=== PATIENT | female | born 1950 | race Caucasian/White ===

== ENCOUNTER → 2017-07-09 | Outpatient (CLI) | payer MEDICARE ==
[~2017-07-09] MED LIST: ASPI81TA23 PO; ASPI81TA82 PO; LEVO137T2 PO; LISI20TA3 PO; METO25 PO; METO50TA PO
[2017-07-09 11:38] LABS: AUTOMATED NEUTROPHIL # 3.3 TH/MM3 (1.8-7.7); BASOPHIL # 0.1 TH/MM3 (0-0.2); BASOPHIL % 0.9 % (0.0-2.0); EOSINOPHIL # 0.2 TH/MM3 (0-0.4); HEMATOCRIT 38.5 % (35.0-46.0); HEMO FLAGS DIFF FINAL; LYMPHOCYTE # 1.5 TH/MM3 (1.0-4.8); MEAN CELL VOLUME 95.3 FL (80.0-100.0); MEAN CORPUSCULAR HEMOGLOBIN 31.9 PG (27.0-34.0); MEAN CORPUSCULAR HGB CONC 33.5 % (32.0-36.0); MONO % 11.5 % (0.0-8.0); NEUT % 58.6 % (16.0-70.0); PLATELET COUNT 253 TH/MM3 (150-450); RED BLOOD COUNT 4.04 MIL/MM3 (4.00-5.30); RED CELL DISTRIBUTION WIDTH 13.6 % (11.6-17.2); WHITE BLOOD COUNT 5.7 TH/MM3 (4.0-11.0)
[2017-07-09 11:42] LABS: APTT (PATIENT) 25.2 SEC (24.3-30.1); INTERNATIONAL NORMALIZED RATIO 1.1 RATIO; PROTHROMBIN TIME - PATIENT 10.7 SEC (9.8-11.6)
[2017-07-09 12:07] LABS: ALT (GPT) 15 U/L (10-53); ANION GAP 7 MEQ/L (5-15); AST (GOT) 15 U/L (15-37); BICARBONATE 28.2 MEQ/L (21.0-32.0); BLOOD UREA NITROGEN 23 MG/DL (7-18); CHLORIDE 107 MEQ/L (98-107); GLOMERULAR FILTRATION RATE 64 ML/MIN (>89); GLUCOSE,FASTING 106 MG/DL (74-99); POTASSIUM 3.8 MEQ/L (3.5-5.1); SODIUM (NA) 142 MEQ/L (136-145)
[2017-07-09 12:10] LABS: ALKALINE PHOSPHATASE 68 U/L (45-117); TOTAL BILIRUBIN ADULT 1.1 MG/DL (0.2-1.0)
--- NOTE | 2017-07-09 13:06 | RADRPT ---
EXAM DATE/TIME: 07/09/2017 11:22 [place] COMPARISON: No previous studies available for comparison. INDICATIONS : Pre-op Hysterectomy. Evaluate for Pneumoia, Pneumothorax, and Communicable Diseases. MEDICAL HISTORY : None. SURGICAL HISTORY : None. ENCOUNTER: Initial ACUITY: 1 day PAIN SCORE: 0/10 LOCATION: Bilateral chest FINDINGS: The cardiac silhouette is enlarged in transverse diameter. The lungs are free of acute parenchymal op acity. No effusions are identified. The aortic knob is prominent with tortuosity of the descending th oracic aorta. There is mild multilevel degenerative change throughout the spine. There is eventratio n of the right hemidiaphragm. CONCLUSION: 1. Cardiomegaly. No acute pulmonary disease. Sanford Fabian MD on July 09, 2017 at 13:03 Board Certified Radiologist. This report was verified electronically.
--- NOTE | 2017-07-10 16:30 | EKG ---
Date Performed: 07/09/2017 Time Performed: 09:56:17 PTAGE: 66 years EKG: ATRIAL FIBRILLATION Consider inferolateral and inferior ischemia. ABNORMAL ECG NO PREVIOUS TRACING DOCTOR: Jonathan Scanlon Interpretating Date/Time 07/10/2017 16:29:20
== END ==
LOC: CPRE 09:40
PROVIDERS: ATTEND Obstetrics & Gynecology Gynecologic Oncology
DX: Z01.810 Encounter for preprocedural cardiovascular examination (principal); Z01.811 Encounter for preprocedural respiratory examination; Z01.812 Encounter for preprocedural laboratory examination; C54.1 Malignant neoplasm of endometrium; R94.31 Abnormal electrocardiogram [ECG] [EKG]
CPT/HCPCS: 36415; 71020; 80053; 85025; 85610; 85730; 93005

== ENCOUNTER 2017-07-24 05:24 | Observation (INO) | payer MEDICARE ==
[~2017-07-24] VITALS: Ht 171.4 cm; Wt 117.8 kg
[~2017-07-24 05:24] MED LIST changes: -ASPI81TA82 PO; -METO25 PO
[2017-07-24] MEDS ORDERED: ceFAZolin 2 GM PREMIX 50 ML IV SCH (05:45)
[2017-07-24] MEDS ORDERED: CHLORHEXIDINE GLUCONATE 2 % 1 PACK (2 CLOTHS) TOPICAL PRN (05:45)
[2017-07-24] MEDS ORDERED: POVIDONE IODINE 5% (ANTISEPSIS KIT) 4 APPLICATIONS EACH NARE PRN (05:45)
[2017-07-24] MEDS ORDERED: INSULIN HUMAN REGULAR 1,000 UNITS/10 ML VIAL SQ PRN (05:45)
[2017-07-24] MEDS ORDERED: METOPROLOL TARTRATE 25 MG TAB PO PRN (05:45)
[2017-07-24] MEDS ORDERED: SODIUM CHLORID 0.9% 500 ML IV PRN (05:45)
[2017-07-24] MEDS ORDERED: HEPARIN SODIUM - SQ 10,000 UNITS/ML VIAL SQ PRN (05:45)
[2017-07-24] MEDS ORDERED: SODIUM CHLORIDE FLUSH PRN IV FLUSH (06:00)
[2017-07-24] MEDS: LACTATED RINGER'S 1000 ML IV PRN ×2 (06:00→11:00)
[2017-07-24] MEDS ORDERED: LIDOCAINE 2%/EPINEPHrine PF 1:200,000 20ML SDV ONE (07:24)
[2017-07-24] MEDS ORDERED: SODIUM CHLORIDE FLUSH BID IV FLUSH SCH (09:00)
[2017-07-24] MEDS ORDERED: METHYLENE BLUE 10 MG/ML VIAL IV ONE (10:00)
[2017-07-24] MEDS: D5-1/2 NS + KCL 20 MEQ INJ 1,000 ML IV SCH ×2 (11:21→20:08)
[2017-07-24] MEDS ORDERED: diphenhydrAMINE HCL 25 MG CAP PO PRN (11:30)
[2017-07-24] MEDS ORDERED: SODIUM CHLORIDE 0.9% FLUSH 10 ML FLUSH IV FLUSH PRN (11:30)
[2017-07-24] MEDS ORDERED: ONDANSETRON HCL 4 MG/2 ML VIAL IVP PRN (11:30)
[2017-07-24] MEDS ORDERED: oxyCODONE/ACETAMINOPHEN 5 MG/325 MG TAB PO PRN (11:30)
[2017-07-24] MEDS: KETOROLAC TROMETHAMINE 30 MG/ML (IVP) VIAL IVP SCH ×3 (11:30→23:43)
[2017-07-24] MEDS ORDERED: DO NOT ADM ANY ANTICOAGULANT DRUGS PRN (11:44)
[2017-07-24] MEDS ORDERED: LIDOCAINE HCL 1% PF 5 ML SYRINGE OTHER ONE (12:00)
[2017-07-24] MEDS ORDERED: VECURONIUM BROMIDE 20 MG VIAL IV ONE (12:00)
[2017-07-24] MEDS ORDERED: ceFAZolin INJ 1,000 MG VIAL IV ONE (12:00)
[2017-07-24] MEDS ORDERED: DEXAMETHASONE SOD PHOS 4 MG/ML VIAL IV ONE (12:00)
[2017-07-24] MEDS ORDERED: NORMOSOL R INJ 1,000 ML IV ONE (12:00)
[2017-07-24] MEDS ORDERED: ROCURONIUM INJ 50 MG/5 ML SYRINGE IV PUSH ONE (12:00)
[2017-07-24] MEDS ORDERED: ONDANSETRON HCL 4 MG/2 ML VIAL IV ONE (12:00)
[2017-07-24] MEDS ORDERED: ePHEDrine/NS 25 MG/5 ML SYRINGE IV ONE (12:00)
[2017-07-24] MEDS ORDERED: ceFAZolin 2 GM PREMIX 50 ML IV ONE (12:00)
[2017-07-24] MEDS ORDERED: SODIUM CHLORIDE 0.9% 20 ML VIAL IV ONE (12:00)
[2017-07-24] MEDS ORDERED: PHENYLEPH/NS 1000 MCG/10 ML SYR IV ONE (12:00)
[2017-07-24] MEDS ORDERED: PROPOFOL 200 MG/20 ML AMP IV ONE (12:00)
[2017-07-24] MEDS ORDERED: GLYCOPYRROLATE 1 MG/5 ML SYRINGE IV PUSH ONE (12:00)
[2017-07-24] MEDS ORDERED: NEOSTIGMINE 5 MG/5 ML SYRINGE IV PUSH ONE (12:00)
[2017-07-24] MEDS ORDERED: METOPROLOL TARTRATE 5 MG/5 ML VIAL IV ONE (12:00)
[2017-07-24] MEDS ORDERED: *morphine SULFATE 8 MG/ML PERIprocedure ONLY ONE (12:38)
[2017-07-24 14:00] VITALS: BP 120/64; PULSE 72; RESP 18; TEMP 98.2
--- NOTE | 2017-07-24 15:33 | PD.ONC.PN ---
Subjective Subjective Remarks post op note pt sleeping, awakens to voice no complaints except thirsty Objective Data Date Time Temp Pulse Resp B/P (MAP) Pulse Ox O2 Delivery O2 Flow Rate FiO2 07/24/17 11:41 98.1 76 20 124/57 (79) 91 Nasal Cannula 2 07/24/17 06:01 98.5 65 18 121/53 (75) 96 07/24/17 07/24/17 07/24/17 07:00 15:00 23:00 Intake Total 2000 ml Output Total 600 ml Balance 1400 ml Administered Medications Medications (Trade) Dose Ordered Sig/Jt Route PRN Reason Start Time Stop Time Status Last Admin Dose Admin Lactated Ringer's 1,000 ml @ 30 mls/hr Q24H PRN IV SEE LABEL COMMENTS 07/24/17 05:45 07/27/17 05:44 07/24/17 11:00 Povidone Iodine (Betadine 5% Antisepsis Kit) 1 applic OIL PRODUCER PRN EACH NARE SEE LABEL COMMENTS 07/24/17 05:45 07/27/17 05:44 07/24/17 06:06 Chlorhexidine Gluconate (Chlorhexidine 2% Cloth) 3 pack OIL PRODUCER PRN TOPICAL SEE LABEL COMMENTS 07/24/17 05:45 07/27/17 05:44 07/24/17 05:30 Cefazolin Sodium/ Dextrose 50 ml @ 100 mls/hr OIL PRODUCER IV 07/24/17 05:45 07/27/17 05:44 07/24/17 06:55 Potassium Chloride/Dextrose/ Sod Cl 1,000 ml @ 100 mls/hr Q10H IV 07/24/17 11:21 07/24/17 11:21 Ketorolac Tromethamine (Toradol Inj) 15 mg Q6H IVP 07/24/17 11:30 07/25/17 05:31 07/24/17 11:30 Objective Remarks GENERAL: Well-nourished, well-developed patient. SKIN: Warm and dry. HEAD: Normocephalic. EYES: No scleral icterus. No injection or drainage. CARDIOVASCULAR: Regular rate and rhythm without murmurs. RESPIRATORY: Breath sounds equal bilaterally. No accessory muscle use. GASTROINTESTINAL: Abdomen soft, non-tender, nondistended. SS are c/d/i EXTREMITIES: teds and scds MUSCULOSKELETAL: Adequate muscle tone. PSYCHIATRIC: Appropriate mood and affect; insight and judgment normal. Assessment/Plan Problem List: (1) Post-operative state ICD Codes: Z98.890 - Other specified postprocedural states Status: Acute Plan: s/p RA dung hyst with BSO for endometrial cancer post op orders in chart ADAT OOB to chair IS to bedsde Percocet and Toradol for pain gutierrez to be removed tomorrow morning anticipate discharge tomorrow Geronimo Lo [facility] Jul 24, 2017 15:33
[2017-07-24 17:00] VITALS: BP 116/70; PULSE 68; RESP 18; TEMP 98.8
[2017-07-24 20:00] VITALS: BP 132/63; PULSE 76; PULSE 82; RESP 18; TEMP 98.3; O2SAT 98
[2017-07-24] MEDS: METOPROLOL TARTRATE 50 MG TAB PO SCH (20:13)
[2017-07-24] MEDS ORDERED: SODIUM CHLORIDE 0.9% FLUSH 10 ML FLUSH IV FLUSH SCH (21:00)
[2017-07-24 23:39] VITALS: BP 128/70; PULSE 76; RESP 19; TEMP 97.9; O2SAT 95
[2017-07-24] MEDS: oxyCODONE/ACETAMINOPHEN 5 MG/325 MG TAB PO PRN (23:43)
[2017-07-25 04:33] VITALS: BP 117/58; PULSE 69; RESP 19; TEMP 98; O2SAT 95
[2017-07-25] MEDS: D5-1/2 NS + KCL 20 MEQ INJ 1,000 ML IV SCH (04:37)
[2017-07-25] MEDS: KETOROLAC TROMETHAMINE 30 MG/ML (IVP) VIAL IVP SCH (05:26)
[2017-07-25] MEDS ORDERED: OXYC1TAB63 PO (06:54)
[2017-07-25 08:00] VITALS: BP 117/71; PULSE 70; RESP 18; TEMP 98; O2SAT 96
[2017-07-25 08:18] LABS: BASOPHIL % 0.1 % (0.0-2.0); EOSINOPHIL % 0.1 % (0.0-4.0); HEMATOCRIT 34.8 % (35.0-46.0); HEMOGLOBIN 11.6 GM/DL (11.6-15.3); LYMPH % 8.9 % (9.0-44.0); LYMPHOCYTE # 1.2 TH/MM3 (1.0-4.8); MEAN CELL VOLUME 94.2 FL (80.0-100.0); MEAN CORPUSCULAR HEMOGLOBIN 31.3 PG (27.0-34.0); MEAN CORPUSCULAR HGB CONC 33.2 % (32.0-36.0); MEAN PLATELET VOLUME 7.8 FL (7.0-11.0); MONO % 7.4 % (0.0-8.0); NEUT % 83.5 % (16.0-70.0); PLATELET COUNT 259 TH/MM3 (150-450); RED CELL DISTRIBUTION WIDTH 13.7 % (11.6-17.2); WHITE BLOOD COUNT 13.1 TH/MM3 (4.0-11.0)
[2017-07-25] MEDS: METOPROLOL TARTRATE 50 MG TAB PO SCH (08:53)
[2017-07-25 08:57] LABS: BICARBONATE 26.1 MEQ/L (21.0-32.0); CALCIUM 7.6 MG/DL (8.5-10.1); CREATININE 0.85 MG/DL (0.50-1.00)
[2017-07-25] MEDS ORDERED: LEVOTHYROXINE SODIUM 112 MCG TAB PO SCH (09:00)
[2017-07-25] MEDS ORDERED: LISINOPRIL 20 MG TAB PO SCH (09:00)
[2017-07-25] MEDS ORDERED: HYDROCHLOROTHIAZIDE 25 MG TAB PO SCH (09:00)
[2017-07-25] MEDS ORDERED: LEVOTHYROXINE SODIUM 25 MCG TAB PO SCH (09:00)
[2017-07-25] MEDS ORDERED: NON-FORMULARY DRUG (Lisinopril-Hctz 1 TAB) PO SCH (09:00)
[2017-07-25] MEDS ORDERED: INFLUENZA VIRUS VACCINE (QUADRIVALENT) 0.5 ML SYR IM ONE (10:00)
[2017-07-25] MEDS ORDERED: PNEUMOCOCCAL POLYVALENT INJ 25 MCG/0.5 ML SYR IM ONE (10:00)
[2017-07-25 11:41] VITALS: BP 122/68; PULSE 72; RESP 18; TEMP 98.4; O2SAT 98
[2017-07-25] MEDS: oxyCODONE/ACETAMINOPHEN 5 MG/325 MG TAB PO PRN (12:48)
--- NOTE | 2017-07-26 07:52 | MP ---
cc: NATHAN VAZQUEZ,LISA Vera MD DATE OF SURGERY: 07/24/2017 PREOPERATIVE DIAGNOSIS: 1. Grade 1 endometrial adenocarcinoma 2. Enlarged uterus. POSTOPERATIVE DIAGNOSIS 1. Grade 1 endometrial cancer. 2. Enlarged uterus. 3. The extensive pelvic adhesions. PROCEDURE Robotic-assisted laparoscopic hysterectomy bilateral salpingo-oophorectomy, partial omentectomy, extensive lysis of adhesions. SURGEON Lisa Littlejohn MD. CREMATOR [place] perioperative assistant ANESTHESIA: General endotracheal anesthesia ESTIMATED BLOOD LOSS 200 cc IV FLUIDS 2000 cc URINE OUTPUT 400 cc HISTORY 66-year-old female who in recent weeks to months had has had more notable postmenopausal bleeding. It got heavier for which she sought evaluation. Historically she had on and off light bleeding or spotting over the last 5 years. Evaluation showed a thickened endometrial stripe. An enlarged prominent uterus. She underwent biopsy that showed a grade 1 endometrial adenocarcinoma. She has been counseled regarding options. She is in favor of surgery. She is seen again in the preop holding area where findings are again reviewed. The plan of surgical care is discussed. Questions were asked and answered. She expressed good understanding and agreed to move forward with surgery. FINDINGS Uterine cavity sounds to 12 cm. The uterus is symmetrically enlarged wide with what seems to be changes due to the leiomyomas as well as probable adenomyosis. In addition to the endometrial tumor. The tubes and ovaries grossly appeared normal. However, there were extensive in the adhesions adjacent to the tubes and ovaries. In the pelvis the posterior cul-de-sac is obliterated the colon and mesentery are scarred to the posterior wall of the uterus and cul-de-sac. The colon is adherent overlying the left pelvic sidewall structures. There is diverticulum. no evidence of active diverticulitis but the changes in the pelvis are suggestive of scar tissue that has resulted from prior diverticulitis. In the abdomen. There is no significant adhesions other than to the abdominal wall. However, the distal edge of the Infrac[place] omentum is draped over the uterine fundus and adherent to the uterus with some adjacent adhesions as well. The liver diaphragm edges were smooth. The omentum otherwise grossly appears normal. Peritoneal surfaces otherwise grossly appeared normal. There is no obviously enlarged pelvic or paraaortic lymph nodes. The preliminary pathology of the removed uterus showed there to be no significant tumor. There was exophytic polypoid growth of that may represent superficial tumor. There was hyperplasia noted there was no overt evidence of myometrial invasion if myometrial invasion is present it was microscopic and there is no endocervical extension. STATEMENT OF COMPLEXITY / MODIFIERS The complexly of this case was increased first be due to several factors for she has a BMI of 37.5 with hypertension. Secondly significant amount of time was required lysing Pelvic adhesions to gain exposure to the pelvis, restore normal anatomy and accomplish surgical objectives. Inferiorly the uterus is markedly enlarged especially relative to the pelvic outlet. All of which required additional time attention and modifier should be applied accordingly. PROCEDURE She was taken to the operating room placed in dorsal lithotomy position after general endotracheal anesthesia was administered time-out was undertaken. She was identified by sight recognition and hospital ID bracelet and the proposed procedure was reviewed and confirmed. She was carefully positioned in padded You stirrups. Her arms were padded and secured to the sides. She was further secured to the operating table with egg crate padding tape in across chest over the shoulder fashion. All sites noted be properly aligned with no malalignments or pressure points. She was prepped and draped sterile fashion, placed in high lithotomy position, cervix grasped, uterine cavity sounded cervix dilated and a standard Vcare manipulator was inserted and secured usual fashion. Brand catheter placed in the bladder. She was returned to low lithotomy position change of sterile gloves was undertaken. We completed draping in anticipation laparoscopy confirmed an orogastric tube was in the stomach on suction. With manual Yves elevation of the abdominal wall and direct laparoscopic visualization 5 mm cannula introduced in the left upper quadrant. Carbon dioxide gas was insufflated. A 12 mm cannula was placed in midline above the umbilicus. A 8 mm cannula was placed in right upper quadrant, left lateral quadrant in the original 5 exchanged for a 8-mm cannula. Peritoneal washings were obtained for cytology and the anatomy was surveyed with findings as described above. She was placed in Trendelenburg position. Robotic system was brought into the operative field attached in the usual fashion. Monopolar scissors, fenestrated bipolar forceps and prograsp manipulators were placed in arms #one, two and three respectively and I took my place at the surgeon's console. In order to gain access to the pelvis the omentum that was adherent to the uterus was felt better to transect. As such that the distal portion of the omentum was removed. The vascular pedicles were isolated, cauterized with bipolar cautery and transected in a stepwise fashion thereby performing a partial omentectomy and leaving the adherent portion stuck to the uterus and they are able to retract the omentum now above the pelvis into the abdomen to assist in surgical exposure. Time was spent lysing adhesions freeing adhesions from the cul-de-sac removing the right tube and ovary that were affixed to the pelvic sidewall, taken down dense adhesions, mobilizing the colon and freeing the pericolonic fat and mesentery from its adhesions against left pelvic sidewall and opening up the posterior cul-de-sac and further taken down surrounding adhesions to gain exposure to the left pelvic sidewall structures. It is estimated at least 45 minutes during this case were spent lysing adhesions. Now the right round ligament was isolated, cauterized transected. The anterior and posterior leafs of the broad ligament were opened. The right ureter was identified. The right infundibulopelvic ligament was isolated. The infundibulopelvic ligament was dissected free to the level of the pelvic brim as the intervening peritoneum was opened infundibulopelvic ligament was cauterized and transected. Posterior peritoneum opened along the right side of uterus and cervix and the right vesicouterine peritoneum was dissected off the lower uterine segment and cervix. The right uterine vessels were skeletonized and cauterized. Attention was directed toward the left side. Additional lysis of adhesion was carried out to gain access to the structures. The left round ligament was isolated. Cauterized transected. The anterior and posterior leafs of the broad ligament were further opened the left ureter was identified. The left infundibulopelvic ligament was isolated. The intervening peritoneum was opened as the infundibulopelvic ligament was isolated to the pelvic brim. It was cauterized and transected. Posterior peritoneum opened along the left side of uterus and cervix. The left vesicouterine peritoneum was dissected off the lower uterine segment of cervix. The left uterine vessels were skeletonized and left uterine vessels were cauterized. There is good blanching of the uterus now that the main blood normalized and secured, and the left uterine vessels were transected. The cardinal paracervical and uterosacral ligaments were isolated, cauterized and transected in stepwise fashion thereby freeing attachments along the left side of the uterus and cervix. Attention was redirected toward the right side where the right uterine vessels were now transected. The cardinal paracervical and uterosacral ligaments were isolated, cauterized and transected in stepwise fashion thereby freeing the attachments along the right side of the uterus and cervix. Circumferential colpotomy was performed the cervix from the upper vagina, it was clear that the specimen would not be easily be delivered trans vaginally so I left the surgeon's console to the bedside to facilitate transvaginal delivery. With countertraction multiple tenaculums repositioning high lithotomy position as well as a sharp dissection through central leiomyoma toward the core of the uterus to help reduce the diameter of uterus all eventually led to a delivery of a specimen which included uterus, cervix, tubes and ovaries and attached portion of the omentum. There was no disruption of the uterus or spill of tissue within the peritoneal cavity is all the aforementioned steps were done beyond the introitus during delivery of the specimen. A pneumo occluder balloon was placed in the vagina to maintain pneumoperitoneum and I returned to the surgeon's console. Instruments one and three exchanged for needle drivers as a 0 Vicryl suture was introduced, the vaginal cuff was closed starting at the left corner where full-thickness closure including the posterior peritoneum edge and uterosacral ligaments were secured tied via instrument tie. The closure was continued across the vaginal apex full-thickness closure carried across with countertraction sutured to the contralateral corner where similarly secured tied. The needle was cut and removed. Small bleeders rendered hemostatic with bipolar cautery and to confirm the integrity the bladder. The bladder was filled with saline dyed with methylene blue. The bladder distended nicely under pressure. There were no weak spots in the bladder. No thinning, no extravasation of dye and it was a good margin between the bladder edge and the vaginal cuff suture line. The bladder was drained. There was good peristalsis of ureters bilaterally. Good hemostasis. Pathology came back showing no evidence of invasive cancer in fact there is no overt evidence of measurable disease in the uterus. It was therefore felt that any further dissection would be associated with morbidity that exceeded benefit. It was felt that all reasonable surgical objectives had been completed. Accordingly the robotic was removed. The robotic system was disengaged from the operative field, I reentered bedside under sterile condition. Each of the three Ray-Jacquelyn sponges that had been placed in peritoneal cavity were removed using the long grasper delivering them through the 12-mm cannula. Each were inspected and noted to be removed in their entirety. Visual inspection confirmed there were no remaining foreign objects in the peritoneal cavity. Preliminary counts were correct. Good hemostasis. The 12 mm fascial defect was closed with 0 Vicryl suture using the fascia closure device. There were tied securely which rendered the fascia completely airtight and hemostatic. The remaining cannulas were withdrawn. Carbon dioxide gas was removed from the peritoneal cavity. 3-0 Vicryl subcutaneous and 3-0 Vicryl subcuticular were used to close these incisions. She was returned to dorsal lithotomy position. Exam confirmed there were no remaining foreign objects in the vagina. Final counts were correct. After inspection confirmed this vaginal cuff suture line to be intact. There was a superficial laceration to the proximal left pelvic sidewall which was reapproximated and rendered hemostatic with [id number] 0 Vicryl sutures. The remainder of the vaginal canal was inspected. No remaining foreign objects superficial irritation was rendered hemostatic. The remaining Surgicel powder, and that had not been placed in the pelvis prior to closing the laparoscopic incisions. She was returned to dorsal supine position. Final counts were correct and she was pending reversal of anesthesia when I left the operating room to precede her to the Post Anesthesia Care. MD KAYLAN Ernst/susan /12:18 PM /7:21 AM MEG
--- NOTE | 2017-07-28 15:31 | MD ---
cc: NATHAN VAZQUEZ,LISA UPTON, ANY DELGADO ADMISSION DATE: 07/24/2017 DISCHARGE DATE: 07/25/2017 PROCEDURE 07/24/2017 - Robotic-assisted laparoscopic hysterectomy, bilateral salpingo-oophorectomy, lysis of adhesions. DIAGNOSIS Endometrial cancer. HOSPITAL COURSE She did well in early postop. She is hemodynamically stable in's and out's were 3300/1500. Labs pending. PHYSICAL EXAMINATION VITAL SIGNS: Afebrile, pulse 69 and 76, respirations 18-19, blood pressure 117-132/58-70, O2 saturations greater than of equal to 95% GENERAL: Alert. LUNGS: Clear except for mild basilar rales. CARDIOVASCULAR: Regular rate and rhythm. ABDOMEN: Incisions clean and dry. TESTING LEAD: No bleeding. EXTREMITIES: Nontender. ASSESSMENT Postop day #1. Steps taken at surgery and the preliminary pathology discussed. Activities and restrictions were reviewed. Questions were asked and answered. She expressed good understanding and agreed. DISPOSITION Anticipate discharge to home today. She is to contact our office to schedule followup in 2-3 weeks. She is to resume prior medications. She will have a prescription for Percocet for pain and she is to call our office should she have any questions or problems between now the time of scheduled followup. Lisa Littlejohn MD KM/SSB /6:43 AM /3:07 PM
== END 2017-07-25 14:04 | disposition home or self-care (01) ==
LOC: HSDC 05:24 → HSDI 11:23 → HCIN 13:56
PROVIDERS: ADMIT Obstetrics & Gynecology Gynecologic Oncology; ATTEND Obstetrics & Gynecology Gynecologic Oncology
DX: C54.1 Malignant neoplasm of endometrium (principal); N73.6 Female pelvic peritoneal adhesions (postinfective); N88.8 Other specified noninflammatory disorders of cervix uteri; N80.0 Endometriosis of uterus; N70.91 Salpingitis, unspecified; D25.9 Leiomyoma of uterus, unspecified; I10 Essential (primary) hypertension; I48.91 Unspecified atrial fibrillation; R06.02 Shortness of breath; E66.9 Obesity, unspecified; Z68.37 Body mass index [BMI] 37.0-37.9, adult
CPT/HCPCS: 00840; 58571; 80048; 85025; 86850; 86900; 86901; 88112; 88309; 88331; 94150; 96365; 96366; 96375; 96376; G0378; J0690; J1100; J1885; J2270; J2370; J2405; J2710; J3480; J7120; 88307